=== PATIENT | female | born 1995 | race African-American/Black ===

== ENCOUNTER 2022-07-17 18:02 | Emergency (ER) | payer MEDICAID ==
[~2022-07-17] VITALS: Ht 165.1 cm; Wt 95.0 kg
[2022-07-17] MEDS ORDERED: KETOROLAC 30MG/ML VIAL IV STA (19:06)
[2022-07-17 19:41] LABS: BASOPHILS % 0.2 % (0.0-2.0); EOSINOPHILS % 0.3 % (0.0-5.0); HEMATOCRIT. 40.2 % (36.0-48.0); HEMOGLOBIN. 13.3 g/dL (12.0-16.0); LYMPHOCYTES % 8.3 % (20.0-50.0); MEAN CORPUSCULAR HEMOGLOBIN 29.3 pg (28.0-32.0); MEAN CORPUSCULAR VOLUME 88.4 fL (81.0-99.0); MEAN PLATELET VOLUME 9.5 fl (7.4-10.4); MONOCYTES % 7.9 % (2.0-8.0); NEUTROPHILS % 83.3 % (40.0-76.0); PLATELET 333 x1000/uL (130-400); RED BLOOD CELL COUNT 4.55 mill/uL (4.2-5.4); RED CELL DISTRIBUTION WIDTH 14.6 % (11.6-14.6)
[2022-07-17 19:43] VITALS: BP 112/78
[2022-07-17 19:45] LABS: CLARITY URINE TURBID (CLEAR); COLOR URINE DARK YELLOW (YELLOW); KETONES URINE TRACE (NEGATIVE); LEUKOCYTE ESTERASE URINE 2+ (NEGATIVE); NITRITE URINE POSITIVE (NEGATIVE); OCCULT BLOOD URINE 3+ (NEGATIVE); PROTEIN URINE 3+ (NEGATIVE)
[2022-07-17 19:59] LABS: CHLORIDE 99 mEq/L (98-107)
[2022-07-17] MEDS ORDERED: CIPR-263 MT (22:44)
== END 2022-07-17 22:56 | disposition home or self-care (01) ==
LOC: ER 18:02
DX: N39.0 Urinary tract infection, site not specified (principal); E11.9 Type 2 diabetes mellitus without complications
CPT/HCPCS: 36415; 74176; 76705; 80053; 81003; 81025; 83605; 83690; 85025; 87077; 87086; 87186; 96374; 99285; J1885